=== PATIENT | male | born 1995 | race Hispanic/Latino ===

== ENCOUNTER 2019-11-14 15:54 | Emergency (ER) | payer SELFPAY ==
--- NOTE | 2019-11-14 16:23 | Emergency Department Report ---
<NICKOLAS NARAYANAN - Last Filed: 11/15/19 10:08> ED Psych HPI - General Chief Complaint: Psych Stated Complaint: MH EVAL Time Seen by Provider: 11/14/19 16:18 - Related Data Home Medications Medication Instructions Recorded Confirmed Last Taken No Known Home Medications [No 11/14/19 11/14/19 Unknown Reported Home Medications] Allergies Allergy/AdvReac Type Severity Reaction Status Date / Time Sulfa (Sulfonamide Allergy Anaphylaxis Verified 11/14/19 16:18 Antibiotics) ED Past Medical Hx - Medications Home Medications: Home Medications Medication Instructions Recorded Confirmed Last Taken Type No Known Home Medications [No 11/14/19 11/14/19 Unknown History Reported Home Medications] ED Medical Decision Making - Lab Data Result diagrams: 11/14/19 16:38 11/14/19 16:38 - Medical Decision Making Addendum done by Nickolas Narayanan M.D. Patient evaluated by mental health The patient is not suicidal homicidal Patient's findings are likely secondary to polysubstance abuse and alcohol intoxication Mental health feels that the patient is on a harm to himself or others ED Disposition Clinical Impression: Polysubstance abuse Disposition: DC-01 TO HOME OR SELFCARE Condition: Stable Instructions: Polysubstance Abuse (ED) Additional Instructions: return if worse Referrals: [facility] [Outside] - 3-5 Days [facility] [Primary Care Provider] - 3-5 Days <VY BUTLER - Last Filed: 11/15/19 23:03> ED Psych HPI - General Source: EMS Mode of arrival: Ambulatory - History of Present Illness Initial Comments: Patient is 24 years old male with history of methamphetamine abuse. Patient was sent from [facility] via EMS for evaluation of agitation. They stated that patient while he was in a group session he started became very agitated. In the ER patient's calm. Patient is drowsy but he is alert and oriented 3 he stated that he just feels tired and fatigued. Patient denied any depression, suicidal ideation or homicidal ideation. He also denied any visual or due to hallucination. Patient is kept asking when he will be able to go back to his detox facility. Complaint: other ED Review of Systems ROS: Stated complaint: MH EVAL Other details as noted in HPI Comment: All other systems reviewed and negative Constitutional: denies: chills, fever Respiratory: denies: cough, shortness of breath, SOB with exertion Cardiovascular: denies: chest pain, palpitations Gastrointestinal: denies: abdominal pain, nausea Musculoskeletal: denies: back pain Neurological: denies: headache, weakness ED Physical Exam - General Limitations: No Limitations General appearance: alert, in no apparent distress - Head Head exam: Present: atraumatic, normocephalic, normal inspection - Eye Eye exam: Present: normal appearance - ENT ENT exam: Present: normal exam, normal orophraynx, mucous membranes moist - Neck Neck exam: Present: normal inspection, full ROM. Absent: tenderness, meningismus, lymphadenopathy, thyromegaly - Respiratory Respiratory exam: Present: normal lung sounds bilaterally - Cardiovascular Cardiovascular Exam: Present: regular rate, normal rhythm, normal heart sounds - GI/Abdominal GI/Abdominal exam: Present: soft, normal bowel sounds. Absent: distended, tenderness, guarding, rebound, rigid, organomegaly, mass, bruit, pulsatile mass, hernia - Extremities Exam Extremities exam: Present: normal inspection, full ROM, normal capillary refill. Absent: pedal edema, calf tenderness - Back Exam Back exam: Present: normal inspection, full ROM. Absent: CVA tenderness (R), CVA tenderness (L), muscle spasm, paraspinal tenderness, vertebral tenderness - Neurological Exam Neurological exam: Present: alert, oriented X3, CN II-XII intact, normal gait, reflexes normal. Absent: abnormal gait, motor sensory deficit - Psychiatric Psychiatric exam: Present: normal mood. Absent: agitated, anxious, flat affect, manic, homicidal ideation, suicidal ideation - Skin Skin exam: Present: warm, intact, normal color ED Course Vital Signs 11/14/19 11/14/19 11/15/19 16:22 21:04 01:37 Temperature 98.6 F 97.7 F 97.9 F Pulse Rate 109 H 98 H 89 Respiratory 18 18 18 Rate Blood Pressure 129/85 117/79 124/83 [Left] O2 Sat by Pulse 98 98 95 Oximetry 11/15/19 07:54 Temperature 98.2 F Pulse Rate 89 Respiratory 18 Rate Blood Pressure 133/84 [Left] O2 Sat by Pulse 98 Oximetry ED Medical Decision Making - Lab Data Result diagrams: 11/14/19 16:38 11/14/19 16:38 Critical care attestation.: If time is entered above; I have spent that time in minutes in the direct care of this critically ill patient, excluding procedure time. ED Disposition Is pt being admited?: No
[2019-11-14 17:04] LABS: Hematocrit 43.1 % (35.5-45.6); Hemoglobin 14.7 gm/dl (11.8-15.2); Mean Corpuscular HGB Conc 34 % (32-34); Mean Corpuscular Volume 95 fl (84-94); Platelet Count 294 K/mm3 (140-440); Red Blood Count 4.52 M/mm3 (3.65-5.03); Red Cell Distribution Width 14.7 % (13.2-15.2)
[2019-11-14 17:06] LABS: Bilirubin,Urine NEG (Negative); Blood,Urine NEG (Negative); Color,Urine Yellow (Yellow); Mucus,Urine FEW /HPF; Protein,Urine <15 mg/dL mg/dL (Negative); Urobilinogen,Urine < 2.0 mg/dL (<2.0)
[2019-11-14 17:18] LABS: Benzodiazepines Screen,Urine PRESUMPTIVE NEGATIVE; Cannabinoid Screen,Urine PRESUMPTIVE NEGATIVE; Cocaine Screen,Urine PRESUMPTIVE NEGATIVE; Methadone Screen,Urine PRESUMPTIVE NEGATIVE; Opiate Screen,Urine PRESUMPTIVE NEGATIVE; WBC,Urine < 1.0 /HPF (0.0-6.0)
[2019-11-14 17:34] LABS: Amphetamine Screen,Urine PRESUMPTIVE POSITIVE
[2019-11-14 17:45] LABS: Basophils % (Manual) 0 % (0.0-1.8); Platelet Estimate Consistent w Auto; RBC Morphology Normal; Total Cells Counted 100
[2019-11-14 18:00] LABS: BUN/Creatinine Ratio 21; Blood Urea Nitrogen 21 mg/dL (9-20); Calcium 9.1 mg/dL (8.4-10.2); Hemolysis Index 17
[2019-11-15 07:56] VITALS: BP 133/84
== END 2019-11-15 10:35 | disposition home or self-care (01) ==
LOC: ED 15:54
DX: F15.10 Other stimulant abuse, uncomplicated (principal); F19.10 Other psychoactive substance abuse, uncomplicated; Z88.2 Allergy status to sulfonamides
CPT/HCPCS: 36415; 80048; 80307; 80320; 81001; 85007; 85025; G0480